=== PATIENT | male | born 1955 | race Caucasian/White ===

== ENCOUNTER 2018-04-12 05:44 | Day surgery (SDC) | payer OTHER ==
[2018-04-12] MEDS ORDERED: FENTAnyl 50 MCG/ML VIAL (08:33)
[2018-04-12] MEDS ORDERED: MIDAZOLAM 1 MG/ML 2 ML INJ ×2 (08:33)
== END 2018-04-12 11:50 | disposition home or self-care (01) ==
LOC: GIL 05:44
DX: Z12.11 Encounter for screening for malignant neoplasm of colon (principal); D12.4 Benign neoplasm of descending colon; K57.30 Diverticulosis of large intestine without perforation or abscess without bleeding
CPT/HCPCS: 45380; 88305